=== PATIENT | male | born 1955 | race Hispanic/Latino ===

== ENCOUNTER → 2018-07-08 | Outpatient (RCR) | payer MEDICARE ==
[~2018-07-08] MED LIST: ASA81 MG PO; Z.0.ALLOPURINOL300 M PO; Z.0.AMLODIPINE BESYL PO; Z.0.CLOPIDOGREL75 MG PO; Z.0.FOLIC ACID1 MG PO; Z.0.LISINOPRIL40 MG PO; Z.0.VYTORIN 10-201 E PO
== END ==
LOC: PT 06-14 10:58
PROVIDERS: ATTEND Specialist
DX: M17.11 Unilateral primary osteoarthritis, right knee (principal); M25.561 Pain in right knee; M25.661 Stiffness of right knee, not elsewhere classified; M62.81 Muscle weakness (generalized); R26.2 Difficulty in walking, not elsewhere classified
CPT/HCPCS: 97010; 97110 ×7; 97161; G0283

== ENCOUNTER 2018-07-12 09:48 | Outpatient (RCR) | payer MEDICARE ==
[2018-08-08] MEDS ORDERED: CARVEDILOL12.5 MG PO (04:43)
[2018-08-08] MEDS ORDERED: FOLIC ACID1 MG PO (04:43)
[2018-08-08] MEDS ORDERED: BUMETANIDE2 MG PO (04:43)
[2018-08-08] MEDS ORDERED: ULORIC40 MG PO (04:43)
[2018-08-08] MEDS ORDERED: ATORVASTATIN CA10 MG PO (04:43)
[2018-08-08] MEDS ORDERED: LISINOPRIL40 MG PO (04:43)
[2018-08-08] MEDS ORDERED: FINASTERIDE5 MG PO (04:43)
[2018-08-08] MEDS ORDERED: MELOXICAM15 MG PO (04:43)
[2018-08-08] MEDS ORDERED: ASPIRIN325 MG PO (04:44)
[2018-10-11] MEDS ORDERED: AMLODIPINE BESY10 MG PO (10:39)
== END 2018-08-07 ==
LOC: PT 09:48
PROVIDERS: ATTEND Specialist
DX: M17.11 Unilateral primary osteoarthritis, right knee (principal); M25.561 Pain in right knee; M25.661 Stiffness of right knee, not elsewhere classified; M62.81 Muscle weakness (generalized); R26.2 Difficulty in walking, not elsewhere classified
CPT/HCPCS: 97110; 97139; G0283

== ENCOUNTER 2018-08-08 03:50 | Inpatient (IN) | payer MEDICARE ==
[~2018-08-08] VITALS: Ht 175.3 cm; Wt 147.4 kg
[2018-08-08] MEDS ORDERED: ACETAMINOPHEN 1000 MG/100 ML IV STA (04:02)
[2018-08-08] MEDS ORDERED: ACETAMINOPHEN 1000 MG/100 ML 100 ML IV ONE (04:11)
[2018-08-08 04:16] LABS: BASOPHILS % 0.1 % (0.0-1.0); HEMATOCRIT 36.6 % (38.2-49.6); HEMOGLOBIN 12.5 g/dL (14.0-18.0); LYMPHOCYTES # (AUTO) 0.9 (1.0-3.2); LYMPHOCYTES % 5.6 % (18.0-39.1); MEAN CORPUSCULAR HEMOGLOBIN 29.6 pg (28-32); MEAN CORPUSCULAR HGB CONC 34.2 g/dL (31-35); MEAN CORPUSCULAR VOLUME 86.5 fL (81-99); MONOCYTES # (AUTO) 1.8 (0.2-0.8); NEUTROPHILS # (AUTO) 13.5 (2.1-6.9); NEUTROPHILS % 82.6 % (38.7-80.0); PLATELET COUNT 199 x10e3/uL (140-360); RED BLOOD COUNT 4.23 x10e6/uL (4.3-5.7); RED CELL DISTRIBUTION WIDTH 13.4 % (11.7-14.4)
--- NOTE | 2018-08-08 04:20 | NUR ---
STRAIGHT CATH FOR URINE SAMPLE, 125ML CLOUDY JJ COLORED URINE OBTAINED AND SENT TO LAB
[2018-08-08] MEDS ORDERED: SODIUM CHLORIDE 0.9% 1000ML 1,000 ML ONE (04:31)
[2018-08-08 04:35] LABS: ALANINE AMINOTRANSFERASE 20 IU/L (0-55); ALBUMIN 3.4 g/dL (3.5-5.0); ALBUMIN/GLOBULIN RATIO 0.9 (0.8-2.0); ALKALINE PHOSPHATASE 52 IU/L (40-150); ANION GAP 14.4 mmol/L (8-16); BLOOD UREA NITROGEN 19 mg/dL (7-26); BUN/CREATININE RATIO 18 (6-25); CARBON DIOXIDE 23 mmol/L (22-29); CHLORIDE 103 mmol/L (98-107); CREATININE, SERUM 1.05 mg/dL (0.72-1.25); EST GLOMERULAR FILTRATION RATE > 60 ML/MIN (60-); GLUCOSE 136 mg/dL (74-118); POTASSIUM 3.4 mmol/L (3.5-5.1); SODIUM 137 mmol/L (136-145)
[2018-08-08] MEDS: CEFTRIAXONE SOD 1 GM/NS 50 ML 50 ML IV SCH (04:40)
[2018-08-08] MEDS ORDERED: ULORIC40 MG PO (04:43)
[2018-08-08] MEDS ORDERED: MELOXICAM15 MG PO (04:43)
[2018-08-08] MEDS ORDERED: FINASTERIDE5 MG PO (04:43)
[2018-08-08] MEDS ORDERED: CARVEDILOL12.5 MG PO (04:43)
[2018-08-08] MEDS ORDERED: FOLIC ACID1 MG PO (04:43)
[2018-08-08] MEDS ORDERED: LISINOPRIL40 MG PO (04:43)
[2018-08-08] MEDS ORDERED: BUMETANIDE2 MG PO (04:43)
[2018-08-08] MEDS ORDERED: ATORVASTATIN CA10 MG PO (04:43)
[2018-08-08] MEDS ORDERED: ASPIRIN325 MG PO (04:44)
[2018-08-08 04:46] LABS: BILIRUBIN,URINE NEGATIVE (NEGATIVE); CLARITY,URINE CLOUDY (CLEAR); COLOR,URINE YELLOW (YELLOW); KETONES,URINE NEGATIVE (NEGATIVE); LEUKOCYTE ESTERASE ,URINE MODERATE (NEGATIVE); NITRITE,URINE POSITIVE (NEGATIVE); PROTEIN,URINE DIPSTICK 2+ (NEGATIVE); URINE UROBILINOGEN 2 mg/dL (0.2 - 1)
--- NOTE | 2018-08-08 04:59 | Diagnostic Imaging Report ---
Examination: Single AP view of the chest. COMPARISON: July 29, 2011 INDICATION: Fever DISCUSSION: Lines/tubes: Sternotomy wires. Lungs: Pulmonary venous congestion. Pleura: No definite effusion. Heart and mediastinum: Cardiomegaly Bones and soft tissues: No acute bony abnormalities. IMPRESSION: 1. Cardiomegaly with pulmonary venous congestion. Signed by: Dr. Emanuel Neri M.D. on 08/08/2018 4:56 AM
[2018-08-08] MEDS ORDERED: SODIUM CHLORIDE 0.9% 1000ML 1,000 ML IV SCH (05:00)
[2018-08-08 05:20] LABS: BACTERIA,URINE MANY /HPF; EPITHELIAL CELLS,URINE FEW /LPF; RBC,URINE 21-50 /HPF (0-5); WBC,URINE (MAN) >50 /HPF (0-5)
--- NOTE | 2018-08-08 05:52 | NUR ---
PT STATES HE FEELS BETTER NOW, SKIN MOIST, FEVER BROKEN. VSS. TO CT. AWAKE ALERT SKIN W/D RESP NONLAB, NAD NOTED.
[2018-08-08] MEDS ORDERED: IOPAMIDOL 370 MG/ML 200 ML INFUS..BTL INJ ONE (06:21)
[2018-08-08] MEDS ORDERED: SODIUM CHLORIDE 0.9% 50ML 50 ML ONE (06:21)
--- NOTE | 2018-08-08 06:28 | Diagnostic Imaging Report ---
EXAMINATION: CT of the abdomen and pelvis with contrast. TECHNIQUE: Helical CT images of the abdomen and pelvis were performed from the lung bases to the lesser trochanters after the intravenous administration of 100 cc of Omnipaque 300 and the oral administration of none. Coronal and sagittal reformatted images were obtained. Dose modulation, iterative reconstruction, and/or weight based adjustment of the mA/kV was utilized to reduce the radiation dose to as low as reasonably achievable. COMPARISON: None. CLINICAL HISTORY:Abdominal pain DISCUSSION: ABDOMEN/PELVIS: LOWER THORAX:Unremarkable. HEPATOBILIARY: No focal hepatic lesions. No intra-or extrahepatic biliary ductal dilation. The gallbladder is normal. SPLEEN: No splenomegaly. PANCREAS: No focal masses or ductal dilatation. ADRENALS: No adrenal nodules. KIDNEYS/URETERS: Bilateral perinephric stranding, nonspecific. 1 cm calculus in the left kidney. No hydronephrosis. PELVIC ORGANS/BLADDER: Focus of gas in the bladder. PERITONEUM/RETROPERITONEUM: No free air or fluid. LYMPH NODES: No intra-abdominal, retroperitoneal, pelvic or inguinal lymphadenopathy. VESSELS: Mild vascular calcifications. GI TRACT: No distention or wall thickening. BONES AND SOFT TISSUE: No bony destructive lesions. No soft tissue abnormalities. IMPRESSION: No acute CT finding. 1 cm left renal calculus. Signed by: Dr. Emanuel Neri M.D. on 08/08/2018 6:25 AM
[2018-08-08] MEDS ORDERED: ONDANSETRON HCL INJ 2MG/ML 2ML 2 MG/ML VIAL IV PRN (07:15)
[2018-08-08] MEDS ORDERED: CEFTRIAXONE SOD 1 GM/NS 50 ML 50 ML IV SCH (07:15)
[2018-08-08 07:17] LABS: LYMPHOCYTES % (MANUAL) 5 % (19-48); MONOCYTES % (MANUAL) 14 % (3.4-9.0); NEUTROPHILS % (MANUAL) 81 % (40-74); PLATELET MORPHOLOGY COMMENT NORMAL; RBC MORPHOLOGY COMMENT NORMAL
--- OUTSIDE RECORDS SUMMARY | 2018-08-08 07:18 | XMS REPORT ---
[facility] Address Unknown Phone Unavailable Care Team Providers Care Desk Attendant Name Role Phone Mk WOODS Unavailable Unavailable Problems This patient has no known problems. Allergies, Adverse Reactions, Alerts This patient has no known allergies or adverse reactions. Medications This patient has no known medications. Results Test Description Test Time Test Comments Text Results Atomic Results Result Comments CT ABDOMEN/PELVIS W 2018-08-08 06:21:00 [place] [address] Patient Name: JUD ROLLINS JR MR #: [id number] : 1955 Age/Sex: 62/M Req #: [id number] Adm Physician: Ordered by: KANA WOODS MD Report #: [id number] Location: ER Room/Bed: Procedure: [id number] CT/CT ABDOMEN/PELVIS W Exam Date: 08/08/18 Exam Time: 0600 REPORT STATUS: Signed EXAMINATION: CT of the abdomen and pelvis with contras t. TECHNIQUE: Helical CT images of the abdomen and pelvis were performed from the lung bases to the lesser trochanters after the intravenous administration of 100 cc of Omnipaque 300 and the oral administration of none. Coronal and sagittal reformatted images were obtained. Dose modulation, iterative reconstruction, and/or weight based adjustment of the mA/kV was utilized to reduce the radiation dose to as low as reasonably achievable. COMPARISON: None. CLINICAL HISTORY:Abdominal pain DISCUSSION: ABDOMEN/PELVIS: LOWER THORAX:Unremarkable. HEPATOBILIARY: No focal hepatic lesions. No intra-or extrahepatic biliary ductal dilation. The gallbladder is normal. SPLEEN: No splenomegaly. PANCREAS: No focal masses or ductal dilatation. ADRENALS: No adrenal nodules. KIDNEYS/URETERS: Bilateral perinephric stranding, nonspecific. 1 cm calculus in the left kidney. No hydronephrosis. PELVIC ORGANS/BLADDER: Focus of gas in the bladder. PERITONEUM/RETROPERITONEUM: No free air or fluid. LYMPH NODES: No intra-abdominal, retroperitoneal, pelvic or inguinal lymphadenopathy. VESSELS: Mild vascular calcifications. GI TRACT: No distention or wall thickening. BONES AND SOFT TISSUE: No bony destructive lesions. No soft tissue abnormalities. IMPRESSION: No acute CT finding. 1 cm left renal calculus. Signed by: Dr. Gabriel Almonte M.D. on 08/08/2018 6:25 AM Dictated By: GABRIEL ALMONTE MD 4 Transcribed By: LAN on 08/08/18624 COPY TO: KANA WOODS MD CHEST SINGLE (PORTABLE) 2018-08-08 04:55:00 [place] [address] Patient Name: JUD ROLLINS JR MR #: [id number] : 1955 Age/Sex: 62/M Req #: [id number] Adm Physician: Ordered by: KANA WOODS MD Report #: [id number] Location: ER Room/Bed: Procedure: [id number] DX/CHEST SINGLE (PORTABLE) Exam Date: 08/08/18 Exam Time: 0432 REPORT STATUS: Signed Examination: Single AP view of the chest. [facility]: July 29, 2011 INDICATION: Fever DISCUSSION: Lines/tubes: Sternotomy wires. Lungs: Pulmonary venous congestion. Pleura: No definite effusion. Heart and mediastinum: Cardiomegaly Bones and soft tissues: No acute bony abnormalities. IMPRESSION: 1. Cardiomegaly with pulmonary venous congestion. Signed by: Dr. Gabriel Almonte M.D. on 08/08/2018 4:56 AM Dictated By: GABRIEL ALMONTE MD Transcribed By: LAN on 08/08/186 COPY TO: KANA WOODS MD
[2018-08-08 07:19] LABS: PLATELET ESTIMATE ADEQUATE
[2018-08-08] MEDS: SODIUM CHLORIDE 0.9% 1000ML 1,000 ML IV SCH ×3 (07:48→23:34)
[2018-08-08 10:22] VITALS: BP 122/58
[2018-08-08 12:32] VITALS: BP 122/58
--- NOTE | 2018-08-08 14:27 | History and Physical ---
HISTORY OF PRESENT ILLNESS: He is a 62-year-old male patient of mine presented to the emergency room with a complaint of pain on the urination and difficulty with urination and urinary retention. HISTORY OF PRESENT ILLNESS: Mr. Paul Kelley is a 62-year-old male patient with a significant history of arthritis, coronary artery disease, obesity, hypertension, hyperlipidemia presented to the emergency room with a complaint of urinary burning, frequency, pain, and unable to completely empty the bladder and also the patient was complaining of having a bilateral flank pain and more on the left side and there is generalized pain in the knee and multiple joints. REVIEW OF SYSTEMS: Detailed review of system examination had been done. All 14 systems evaluated and the patient is complaining of generalized pain and generalized body aches, chills, fever, and multiple joint pains. PAST MEDICAL HISTORY: The patient has a history of coronary artery disease, hypertension, hyperlipidemia. The patient had urinary retention in 2011. PAST SURGICAL HISTORY: Knee replacement. Morbid obesity. MEDICATIONS: See from the list. ALLERGIES: NO KNOWN DRUG ALLERGIES. SOCIAL HISTORY: The patient chews tobacco. He quit smoking in 1980. He is not using alcohol. FAMILY HISTORY: Hypertension, hyperlipidemia. PHYSICAL EXAMINATION: GENERAL: He is a middle-aged male patient lying in the bed, not in any acute distress now. VITAL SIGNS: Temperature 99.1, pulse rate 86, respiratory rate 16, blood pressure 109/55. HEENT: Normocephalic, atraumatic. No JVD. No lymphadenopathy. LUNG: Bilateral equal air entry. No rales, rhonchi. HEART: S1, S2 regular. Systolic murmur present. No gallop. ABDOMEN: Soft. Bowel sounds present. NEUROLOGICAL: No focal neurological deficits. IMAGING: The patient's CAT scan had showed 1 cm left renal calculus and bilateral perinephric standing. EKG showed cardiomegaly with pulmonary vascular congestion. LABORATORY EXAMINATION: [place] [address]. Potassium was 3.4 and CK was 237 elevated. Urine is nitrite positive and multiple rbc's and wbc's. ADMITTING IMPRESSION/DIAGNOSES: Acute pyelonephritis with left renal stone, hypertension, coronary artery disease, hyperlipidemia, arthritis, morbid obesity. PLAN: The patient will be admitted with above diagnosis. We will treat the patient with IV antibiotic Rocephin and IV fluid and obtain Urology consultation, Dr. Overton. MD MAMTA Moreno/VLADIMIR /[id number]
[2018-08-08] MEDS: MORPHINE SULFATE INJ 4 MG/ML INJ 1ML IV PRN ×3 (14:35→23:34)
[2018-08-08 16:00] VITALS: BP 130/63
[2018-08-08 16:20] LABS: CREATINE KINASE MB 1.2 ng/mL (0-5.0)
[2018-08-08] MEDS: CARVEDILOL 12.5 MG TAB PO SCH (17:00)
[2018-08-08] MEDS: ACETAMINOPHEN 325 MG TAB PO PRN (18:50)
[2018-08-08 19:40] VITALS: BP 131/58
[2018-08-08 19:45] VITALS: BP 131/58
[2018-08-09] VITALS (7 sets, daily range): BP systolic 118–170; BP diastolic 58–74
[2018-08-09] MEDS: ACETAMINOPHEN 325 MG TAB PO PRN ×3 (00:47→20:26)
[2018-08-09] MEDS: CEFTRIAXONE SOD 1 GM/NS 50 ML 50 ML IV SCH (04:36)
[2018-08-09] MEDS: MORPHINE SULFATE INJ 4 MG/ML INJ 1ML IV PRN ×5 (04:45→20:26)
[2018-08-09 05:22] LABS: BASOPHILS % 0.2 % (0.0-1.0); EOSINOPHILS % 0.3 % (0.0-6.0); HEMATOCRIT 34.4 % (38.2-49.6); HEMOGLOBIN 11.5 g/dL (14.0-18.0); LYMPHOCYTES # (AUTO) 1.5 (1.0-3.2); LYMPHOCYTES % 9.4 % (18.0-39.1); MEAN CORPUSCULAR HEMOGLOBIN 29.8 pg (28-32); MEAN CORPUSCULAR HGB CONC 33.4 g/dL (31-35); MEAN CORPUSCULAR VOLUME 89.1 fL (81-99); MONOCYTES # (AUTO) 1.8 (0.2-0.8); MONOCYTES % 11.4 % (4.4-11.3); NEUTROPHILS % 77.5 % (38.7-80.0); PLATELET COUNT 195 x10e3/uL (140-360); RED BLOOD COUNT 3.86 x10e6/uL (4.3-5.7); RED CELL DISTRIBUTION WIDTH 13.8 % (11.7-14.4)
[2018-08-09 05:43] LABS: ALANINE AMINOTRANSFERASE 20 IU/L (0-55); ALBUMIN/GLOBULIN RATIO 0.8 (0.8-2.0); ALKALINE PHOSPHATASE 48 IU/L (40-150); ANION GAP 13.3 mmol/L (8-16); BLOOD UREA NITROGEN 20 mg/dL (7-26); BUN/CREATININE RATIO 19 (6-25); CALCIUM 8.8 mg/dL (8.4-10.2); CARBON DIOXIDE 24 mmol/L (22-29); CHLORIDE 104 mmol/L (98-107); CREATININE, SERUM 1.05 mg/dL (0.72-1.25); EST GLOMERULAR FILTRATION RATE > 60 ML/MIN (60-); GLUCOSE 108 mg/dL (74-118); POTASSIUM 3.3 mmol/L (3.5-5.1); SODIUM 138 mmol/L (136-145)
[2018-08-09 06:39] LABS: CREATINE KINASE MB 1.3 ng/mL (0-5.0)
--- NOTE | 2018-08-09 07:06 | NUR ---
report and walking rounds completed, bed in low and locked position, IV intact
[2018-08-09 07:51] LABS: LYMPHOCYTES % (MANUAL) 5 % (19-48); MONOCYTES % (MANUAL) 14 % (3.4-9.0); NEUTROPHILS % (MANUAL) 81 % (40-74); PLATELET ESTIMATE ADEQUATE; PLATELET MORPHOLOGY COMMENT NORMAL; RBC MORPHOLOGY COMMENT NORMAL
--- NOTE | 2018-08-09 08:27 | Consultation ---
DATE OF CONSULTATION: 08/08/2018 Urology Consultation REASON FOR CONSULTATION: Pyelonephritis. HISTORY OF PRESENT ILLNESS: Warren Miller Jr. is a 62-year-old man, who presented with fever greater than 102. The patient was previously treated at [facility]. He underwent CT scanning at that time. Apparently, he was never told he had a kidney stone. The patient denies any hematuria or current dysuria. The patient denies any urinary incontinence. PAST MEDICAL AND SURGICAL HISTORY: 1. Morbid obesity. 2. Coronary artery disease status post coronary artery bypass grafting x3. 3. Status post left total knee arthroplasty. 4. Needs a right total knee arthroplasty. 5. Status post circumcision. CURRENT MEDICATIONS: Reviewed. Please refer the MAR. ALLERGIES: PLEASE REFER THE MAR. SOCIAL HISTORY: The patient denies smoking, alcohol, and drug use. He does dip tobacco. 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 FAMILY HISTORY: Noncontributory to the active urological problems. REVIEW OF SYSTEMS: Discussed as above in history of present illness and past medical history, otherwise negative for all systems. PHYSICAL EXAMINATION: GENERAL: Very pleasant, morbidly obese 62-year-old male, lying in bed, in no apparent distress. VITAL SIGNS: The patient is currently afebrile. His vital signs are currently stable. The patient's temperature upon presentation to the emergency room was 102.5. ABDOMEN: Soft, nondistended, nontender without costovertebral angle tenderness. No mass palpable. GENITOURINARY: Testes descended bilaterally. Testes and epididymides bilaterally palpably normal and nontender. The patient has a large right hydrocele and a moderate left hydrocele that are nontender and soft. The patient has a circumcised male phallus with scarring and secondary phimosis and a phimotic band. The patient's meatus is unremarkable. For the remaining physical examination systems, please refer to the admission history and physical on the chart. LABORATORY STUDIES: The patient's cultures are pending. White blood cell count is 16,340, hemoglobin 12.5, and platelets are 199,000. The patient's potassium is low at 3.4, creatinine is normal at 1.05, calcium is normal at 9. Urinalysis is significant for 21-50 rbc's, greater than 50 wbc's and many bacteria with nitrite positive urine. CT scan of the abdomen and pelvis was done in the emergency room. It showed a 1 cm left renal stone without any hydronephrosis. ASSESSMENT: 1. Left nephrolithiasis. 2. Urinary tract infection. 3. Left pyelonephritis. 4. Recurrent chronic prostatitis. 5. Morbidly obese at approximately 320 pounds. 6. Right greater than left hydrocele. 7. Phimosis that is recurrent despite prior circumcision. 8. Microhematuria. 9. Leukocytosis. 10. Anemia. 11. Hypokalemia. PLAN: 1. Hematologic: Electrolyte abnormalities per the primary team. 2. We will recommend following up on the patient's culture and sensitivity and adjusting the patient's antibiotics accordingly. 3. The patient will need stone procedure. He is too large for the usual extracorporeal shock wave lithotripsy machine that we utilize. Most likely, ureteroscopic approach will be required. Thank you much for involving us in care of your patient. We will be happy to follow along with you as well as an outpatient. Boubacar Overton MD [place]/MODL /[id number] cc: Migel Martinez MD
--- NOTE | 2018-08-09 08:39 | Diagnostic Imaging Report ---
EXAMINATION: CHEST SINGLE (PORTABLE) INDICATION: Chest pain COMPARISON: None FINDINGS: TUBES and LINES: Sternotomy wires and EKG leads overlie the thorax. LUNGS: The lung volumes are low. There is left basilar opacity silhouetting the left heart border and left migdalia diaphragm. PLEURA: No pleural effusion or pneumothorax. HEART AND MEDIASTINUM: The cardiomediastinal silhouette is stable , mildly enlarged. BONES AND SOFT TISSUES: No acute osseous lesion. Soft tissues are unremarkable. UPPER ABDOMEN: No free air under the diaphragm. IMPRESSION: Low lung volumes. Left basilar opacity, more likely atelectasis than aspiration or pneumonia. Signed by: Larissa Dill MD on 08/09/2018 8:35 AM
[2018-08-09] MEDS: SODIUM CHLORIDE 0.9% 1000ML 1,000 ML IV SCH ×2 (09:20→15:02)
[2018-08-09] MEDS: MELOXICAM 7.5 MG TAB PO SCH (09:22)
[2018-08-09] MEDS: BUMETANIDE 1 MG TAB PO SCH (09:22)
[2018-08-09] MEDS: ASPIRIN 325 MG TAB PO SCH (09:22)
[2018-08-09] MEDS: FOLIC ACID 1 MG TAB PO SCH (09:22)
[2018-08-09] MEDS: LISINOPRIL 20 MG TAB PO SCH (09:22)
[2018-08-09] MEDS: CARVEDILOL 12.5 MG TAB PO SCH ×2 (09:22→16:22)
[2018-08-09] MEDS: ATORVASTATIN 10 MG TAB PO SCH (09:22)
[2018-08-09] MEDS: FEBUXOSTAT 80 MG TAB PO SCH (09:23)
[2018-08-09] MEDS: FINASTERIDE 5 MG TAB PO SCH (09:23)
[2018-08-09] MEDS ORDERED: ONDANSETRON HCL 4 MG ORAL DISINTEGRATING TAB PO PRN (15:30)
--- NOTE | 2018-08-09 15:35 | NUR ---
Visit made by the Spiritual Care Department Pastoral Visitor, Tabatha Chavez. PV provided pastoral presence, prayer, hospitality, and supportive listening. Pastoral Visitor informed pt/family of the scope of Press Setter Services and availability. ASHANTI COUGHLIN Director Transportation Spiritual Care Department O: [phone] Pager: [phone] ([phone] number calling from)
[2018-08-10] VITALS (8 sets, daily range): BP systolic 129–165; BP diastolic 62–77
[2018-08-10] MEDS: MORPHINE SULFATE INJ 4 MG/ML INJ 1ML IV PRN ×2 (02:05→23:15)
[2018-08-10] MEDS: SODIUM CHLORIDE 0.9% 1000ML 1,000 ML IV SCH ×2 (02:28→07:02)
[2018-08-10] MEDS: ACETAMINOPHEN 325 MG TAB PO PRN (02:29)
[2018-08-10] MEDS: CEFTRIAXONE SOD 1 GM/NS 50 ML 50 ML IV SCH (04:00)
[2018-08-10 05:07] LABS: BASOPHILS % 0.1 % (0.0-1.0); EOSINOPHILS # (AUTO) 0.1 (0.0-0.4); EOSINOPHILS % 0.6 % (0.0-6.0); HEMATOCRIT 32.3 % (38.2-49.6); HEMOGLOBIN 10.9 g/dL (14.0-18.0); LYMPHOCYTES # (AUTO) 1.1 (1.0-3.2); MEAN CORPUSCULAR HEMOGLOBIN 29.8 pg (28-32); MEAN CORPUSCULAR HGB CONC 33.7 g/dL (31-35); MEAN CORPUSCULAR VOLUME 88.3 fL (81-99); MONOCYTES % 9.8 % (4.4-11.3); NEUTROPHILS # (AUTO) 8.3 (2.1-6.9); NEUTROPHILS % 78.7 % (38.7-80.0); PLATELET COUNT 213 x10e3/uL (140-360); RED BLOOD COUNT 3.66 x10e6/uL (4.3-5.7); RED CELL DISTRIBUTION WIDTH 13.6 % (11.7-14.4)
--- NOTE | 2018-08-10 06:44 | NUR ---
GOT RESULT FROM LAB. PATIENT HAS ESBL IN THE URINE. NOTIFIED FIELD STAFF MANAGER
--- NOTE | 2018-08-10 07:05 | NUR ---
RCD PT AT BED PT IS ALERT AND ORIENTED PT RESTING ON BED NO SIGNS OF ANY DISTRESS NOTED IV PATENT BED LOW AND LOCKED CALL LIGHT IN REACH
[2018-08-10] MEDS: CARVEDILOL 12.5 MG TAB PO SCH ×2 (08:00→17:00)
--- NOTE | 2018-08-10 08:50 | NUR ---
PAGED DR Marilia WEBB TO NOTIFY THE CRITICAL LAB
[2018-08-10] MEDS: ATORVASTATIN 10 MG TAB PO SCH (09:00)
[2018-08-10] MEDS: FINASTERIDE 5 MG TAB PO SCH (09:00)
[2018-08-10] MEDS: FOLIC ACID 1 MG TAB PO SCH (09:00)
[2018-08-10] MEDS: BUMETANIDE 1 MG TAB PO SCH (09:00)
[2018-08-10] MEDS: ASPIRIN 325 MG TAB PO SCH (09:00)
[2018-08-10] MEDS: MELOXICAM 7.5 MG TAB PO SCH (09:00)
[2018-08-10] MEDS: FEBUXOSTAT 80 MG TAB PO SCH (09:00)
[2018-08-10] MEDS: LISINOPRIL 20 MG TAB PO SCH (09:00)
[2018-08-10] MEDS ORDERED: POTASSIUM CHLORIDE 10MEQ EA PO ONE (10:30)
[2018-08-10] MEDS: PIPERACILLIN/TAZO 4.5 GM 100 ML IV SCH ×2 (13:49→21:07)
--- NOTE | 2018-08-10 18:41 | NUR ---
PT RESTING ON BED BED SIDE REPORT GIVEN TO ONCOMING NURSE
[2018-08-11 00:32] VITALS: BP 145/69
[2018-08-11 05:03] LABS: BASOPHILS % 0.4 % (0.0-1.0); EOSINOPHILS # (AUTO) 0.2 (0.0-0.4); EOSINOPHILS % 1.5 % (0.0-6.0); HEMATOCRIT 35.4 % (38.2-49.6); HEMOGLOBIN 11.8 g/dL (14.0-18.0); LYMPHOCYTES # (AUTO) 0.9 (1.0-3.2); LYMPHOCYTES % 8.7 % (18.0-39.1); MEAN CORPUSCULAR HEMOGLOBIN 29.6 pg (28-32); MEAN CORPUSCULAR HGB CONC 33.3 g/dL (31-35); MEAN CORPUSCULAR VOLUME 88.7 fL (81-99); MONOCYTES % 9.6 % (4.4-11.3); NEUTROPHILS # (AUTO) 7.8 (2.1-6.9); NEUTROPHILS % 79.4 % (38.7-80.0); PLATELET COUNT 238 x10e3/uL (140-360); RED BLOOD COUNT 3.99 x10e6/uL (4.3-5.7); RED CELL DISTRIBUTION WIDTH 13.4 % (11.7-14.4)
[2018-08-11 05:10] VITALS: BP 176/83
[2018-08-11 05:24] LABS: ALANINE AMINOTRANSFERASE 192 IU/L (0-55); ALBUMIN 2.8 g/dL (3.5-5.0); ALBUMIN/GLOBULIN RATIO 0.7 (0.8-2.0); ALKALINE PHOSPHATASE 96 IU/L (40-150); ANION GAP 13.8 mmol/L (8-16); BLOOD UREA NITROGEN 15 mg/dL (7-26); BUN/CREATININE RATIO 18 (6-25); CARBON DIOXIDE 28 mmol/L (22-29); CHLORIDE 99 mmol/L (98-107); CREATININE, SERUM 0.84 mg/dL (0.72-1.25); EST GLOMERULAR FILTRATION RATE > 60 ML/MIN (60-); GLUCOSE 107 mg/dL (74-118); POTASSIUM 3.8 mmol/L (3.5-5.1); SODIUM 137 mmol/L (136-145)
[2018-08-11] MEDS: PIPERACILLIN/TAZO 4.5 GM 100 ML IV SCH ×2 (05:41→14:00)
[2018-08-11 07:44] VITALS: BP 176/83
[2018-08-11 07:50] VITALS: BP 163/76
[2018-08-11] MEDS: CARVEDILOL 12.5 MG TAB PO SCH ×2 (08:00→17:00)
[2018-08-11] MEDS: LISINOPRIL 20 MG TAB PO SCH (09:00)
[2018-08-11] MEDS: ASPIRIN 325 MG TAB PO SCH (09:00)
[2018-08-11] MEDS: BUMETANIDE 1 MG TAB PO SCH (09:00)
[2018-08-11] MEDS: MELOXICAM 7.5 MG TAB PO SCH (09:00)
[2018-08-11] MEDS: ATORVASTATIN 10 MG TAB PO SCH (09:00)
[2018-08-11] MEDS: FINASTERIDE 5 MG TAB PO SCH (09:00)
[2018-08-11] MEDS: FEBUXOSTAT 80 MG TAB PO SCH (09:00)
[2018-08-11] MEDS: FOLIC ACID 1 MG TAB PO SCH (09:00)
[2018-08-11 11:51] VITALS: BP 132/70
--- NOTE | 2018-08-11 13:55 | NUR ---
IMM letter delivered and explained to pt. He verbalized understanding. Signed copy placed in chart. Copy to pt's transition of care folder.
--- NOTE | 2018-08-11 15:44 | NUR ---
AC TO DR PRISCILLA ALCANTAR PT CAN GO HOME PAGED TO DR Marilia WEBB TO GET DISCHARGE ORDER
[2018-08-11] MEDS ORDERED: BACTRIM DS TAB1 EACH PO (16:30)
[2018-08-11] MEDS ORDERED: TYLENOL WITH C1 EACH PO (16:31)
[2018-08-11 16:48] VITALS: BP 142/72
--- NOTE | 2018-08-11 17:48 | NUR ---
PT WENT HOME IN SAFE CONDITION WITH HIS DAUGHTER
--- NOTE | 2018-08-11 18:20 | Discharge Summary ---
HISTORY OF PRESENT ILLNESS: This is a 62-year-old male patient, presented with a complaint of urinary retention and unable to urinate for couple of days and fevers, chills, and abdominal pain. ADMITTING IMPRESSION/DIAGNOSES: The patient has a urinary tract infection, pyelonephritis, kidney stone, hypertension coronary artery disease. The patient has a right hydronephrosis and hypokalemia. HOSPITAL COURSE SUMMARY: The patient was admitted with above diagnoses and was treated with IV antibiotics, Rocephin. The patient had abdominal CT scan was done and found a 1 cm left renal calculus and the patient has bilateral perinephric standing. Chest x-ray was done which was basilar atelectasis. The patient's urine culture was ESBL, so Rocephin was stopped and Zosyn was started. A Urology consultation was done by Dr. Overton. The patient was advise to treat with IV antibiotics switched over to oral Bactrim and now upon stabilization, the patient will be discharged home on oral double strength Bactrim DS twice a day for 14 days. The patient will need a urological procedure for the stone as outpatient. Once the infection clears up, the patient will need outpatient followup with me as well as Urology as outpatient. MD MAMTA Moreno/VLADIMIR /[id number]
[2018-10-11] MEDS ORDERED: AMLODIPINE BESY10 MG PO (10:39)
== END 2018-08-11 17:25 | disposition home or self-care (01) | DRG 872 ==
LOC: ER 03:50 → ERHOLD 07:02 → MED/SURG2 10:05
PROVIDERS: ADMIT Internal Medicine; ATTEND Internal Medicine
DX: A41.9 Sepsis, unspecified organism (principal); N13.6 Pyonephrosis; Z68.42 Body mass index [BMI] 45.0-49.9, adult; M19.90 Unspecified osteoarthritis, unspecified site; I25.10 Atherosclerotic heart disease of native coronary artery without angina pectoris; E78.5 Hyperlipidemia, unspecified; Z18.9 Retained foreign body fragments, unspecified material; E66.01 Morbid (severe) obesity due to excess calories; N41.9 Inflammatory disease of prostate, unspecified; B96.20 Unspecified Escherichia coli [E. coli] as the cause of diseases classified elsewhere; Z16.12 Extended spectrum beta lactamase (ESBL) resistance; E87.6 Hypokalemia; D64.9 Anemia, unspecified
CPT/HCPCS: 36415; 71045; 74177; 80053; 81001; 82550; 82553; 83605; 84484; 85025; 87040; 87086; 87186; 99284; J0696; J2270; J2405; J2543; J7030; Q0162; Q9967

== ENCOUNTER 2018-10-14 06:09 | Observation (INO) | payer BC, MEDICARE ==
[2018-10-11 11:36] LABS: BASOPHILS % 0.3 % (0.0-1.0); EOSINOPHILS # (AUTO) 0.6 (0.0-0.4); EOSINOPHILS % 5.2 % (0.0-6.0); HEMATOCRIT 38.2 % (38.2-49.6); HEMOGLOBIN 12.7 g/dL (14.0-18.0); LYMPHOCYTES # (AUTO) 2.7 (1.0-3.2); MEAN CORPUSCULAR HGB CONC 33.2 g/dL (31-35); MEAN CORPUSCULAR VOLUME 90.1 fL (81-99); MONOCYTES # (AUTO) 0.9 (0.2-0.8); MONOCYTES % 7.4 % (4.4-11.3); NEUTROPHILS # (AUTO) 7.4 (2.1-6.9); NEUTROPHILS % 63.5 % (38.7-80.0); PLATELET COUNT 294 x10e3/uL (140-360); RED BLOOD COUNT 4.24 x10e6/uL (4.3-5.7); RED CELL DISTRIBUTION WIDTH 13.6 % (11.7-14.4)
[2018-10-11 12:01] LABS: ANION GAP 13.3 mmol/L (8-16); BLOOD UREA NITROGEN 16 mg/dL (7-26); BUN/CREATININE RATIO 15 (6-25); CALCIUM 9.8 mg/dL (8.4-10.2); CARBON DIOXIDE 29 mmol/L (22-29); CHLORIDE 101 mmol/L (98-107); CREATININE, SERUM 1.05 mg/dL (0.72-1.25); EST GLOMERULAR FILTRATION RATE > 60 ML/MIN (60-); GLUCOSE 126 mg/dL (74-118); POTASSIUM 4.3 mmol/L (3.5-5.1); SODIUM 139 mmol/L (136-145)
--- NOTE | 2018-10-11 12:19 | Diagnostic Imaging Report ---
EXAM: ABDOMEN-1VIEW (KUB), CHEST 2 VIEWS DATE: 10/11/2018 10:51 AM INDICATION: Kidney stone, preoperative evaluation COMPARISON: Chest radiograph from 08/09/2018, CT abdomen/pelvis from 08/08/2018 FINDINGS: There are postsurgical changes from median sternotomy. The trachea is midline. The lungs are symmetrically expanded without evidence for focal consolidation, pneumothorax, or significant pleural effusion. The cardiac silhouette is at the upper limits of normal for size. Mediastinal contours are unremarkable. Bowel gas pattern appears nonobstructive. No pathologically dilated loops of bowel identified. There is a 1 cm calcification projecting over the left renal shadow likely are presenting the renal stone noted on the prior CT examination. No other abnormal intra-abdominal calcification is identified. No acute osseous abnormalities identified. IMPRESSION: No acute cardiopulmonary process identified. 1 cm calcification noted projecting over the left renal shadow likely representing the known renal calculus. Signed by: Dr. Sumanth Estrada MD on 10/11/2018 12:15 PM
[~2018-10-14] VITALS: Ht 175.3 cm; Wt 151.1 kg
[~2018-10-14 06:09] MED LIST changes: +AMLODIPINE BESY10 MG PO; +ASPIRIN325 MG PO; +ATORVASTATIN CA10 MG PO; +BACTRIM DS TAB1 EACH PO; +BUMETANIDE2 MG PO; +CARVEDILOL12.5 MG PO; +FINASTERIDE5 MG PO; +FOLIC ACID1 MG PO; +LISINOPRIL40 MG PO; +MELOXICAM15 MG PO; +TYLENOL WITH C1 EACH PO; +ULORIC40 MG PO
[2018-10-14] MEDS ORDERED: IOPAMIDOL 610MG/1ML 300 MG/ML VIAL IV ONE (06:19)
[2018-10-14] MEDS ORDERED: B&O 60MG R/S 60 MG SUPP PR ONE ×2 (06:19→08:04)
[2018-10-14] MEDS ORDERED: CEFTRIAXONE SOD 1 GM/NS 50 ML 100 ML IV ONE (07:08)
--- NOTE | 2018-10-14 07:10 | NUR ---
SPIRITUAL CARE - Pre-Surgery Assessment: Pt in bed. Pt reported supportive attention from family and friends. Intervention: I provided pastoral presence, hospitality, and sympathetic listening. I acquainted pt with availability of tapper operator while hospitalized. Outcome: Pt expressed appreciation for visit. No need for follow up indicated at this time. ASHANTI Barnettlain Spiritual Care Department O: [phone] Pager: [phone] ([phone] number calling from)
[2018-10-14] MEDS ORDERED: FENTANYL CITRATE/PF 100MCG/2 ML INJ ONE ×2 (09:51→18:48)
[2018-10-14] MEDS ORDERED: HYDROMORPHONE 2MG/ML 2 MG/ML ML ONE (10:52)
[2018-10-14] MEDS ORDERED: OXYBUTYNIN CHLORIDE 5 MG TAB ONE (11:30)
[2018-10-14] MEDS ORDERED: DIPHENHYDRAMINE HCL 25 MG CAP PO PRN (12:45)
[2018-10-14] MEDS ORDERED: B&O 60MG R/S 60 MG SUPP PR PRN (12:45)
[2018-10-14] MEDS ORDERED: NALOXONE HCL INJ 0.4 MG/ML AMP IV PRN (12:45)
[2018-10-14] MEDS ORDERED: ONDANSETRON HCL INJ 2MG/ML 2ML 2 MG/ML VIAL IV PRN (12:45)
[2018-10-14] MEDS ORDERED: MORPHINE SULFATE 1 MG/ML 30ML PCA IV PRN (12:45)
[2018-10-14] MEDS ORDERED: MORPHINE SULFATE 2 MG/ML SYR 1ML ONE (12:51)
[2018-10-14] MEDS ORDERED: MORPHINE SULFATE 1 MG/ML 30ML PCA ONE (12:58)
[2018-10-14] MEDS ORDERED: PIPER-TAZ 3.375 GM 50 ML IV SCH (14:00)
[2018-10-14] MEDS ORDERED: LIDOCAINE HCL 2% LOCAL INJ 5 ML SDV VIAL INJ ONE (14:24)
[2018-10-14] MEDS ORDERED: PROPOFOL IV EMULSION 10 MG/ML 20 ML VIAL ONE (14:24)
[2018-10-14] MEDS ORDERED: DEXAMETHASONE SOD PHOS INJ 4 MG/ML VIAL ONE (14:24)
[2018-10-14] MEDS ORDERED: SEVOFLURANE INHAL SOLN 250 ML PEN BTL ONE (14:24)
[2018-10-14] MEDS ORDERED: ONDANSETRON HCL INJ 2MG/ML 2ML 2 MG/ML VIAL ONE (14:24)
[2018-10-14 14:41] VITALS: BP 139/74
[2018-10-14 15:08] VITALS: BP 139/74
[2018-10-14 16:37] VITALS: BP 139/74
[2018-10-14] MEDS: PHENAZOPYRIDINE HCL 100 MG TAB PO SCH ×2 (17:00→17:44)
[2018-10-14] MEDS: D5.45%NS/KCL 20MEQ 1,000 ML IV SCH ×2 (17:00→20:17)
[2018-10-14] MEDS: OXYBUTYNIN CHLORIDE 5 MG TAB PO SCH ×2 (17:00→20:17)
[2018-10-14] MEDS: DOCUSATE SODIUM 100 MG CAP PO SCH (17:39)
[2018-10-14] MEDS: PIPER-TAZ 3.375 GM 50 ML IV SCH (17:39)
[2018-10-14] MEDS ORDERED: MIDAZOLAM HCL 2 MG/2 ML VIAL ONE (18:48)
--- NOTE | 2018-10-14 19:03 | NUR ---
Patient lying in bed with eyes open. respiration even and unlabored. Report given to core finisher. Call light in reach.
[2018-10-14 19:05] VITALS: BP 139/74
[2018-10-14 20:00] VITALS: BP 130/63
--- NOTE | 2018-10-14 20:14 | History and Physical ---
HISTORY OF PRESENT ILLNESS: The patient is a 62-year-old male patient, presented with a complaint of abdominal pain and the patient was having recurrent abdominal pain from the stone in the left ureter and the patient was also having generalized joint pain and arthritis. The patient was seen by Dr. Overton. The patient was taken to the OR and the patient had left ureterostomy, stent was placed and, stone was removed. The patient has a significant medical history of coronary artery disease and basically hypertension and arthritis. ALLERGIES: NO KNOWN DRUG ALLERGIES. MEDICATIONS: See from the list. PAST MEDICAL HISTORY: Coronary artery disease, status post coronary artery bypass surgery, status post left knee arthroplasty and right knee severe arthritis needing surgery. SOCIAL HISTORY: The patient denies smoking. Denies using alcohol or any recreational drugs. FAMILY HISTORY: Hypertension. REVIEW OF SYSTEMS: The patient has a detailed review of systems examination was done and most of the systems were negative, except the patient has neck pain, abdominal pain, urinary burning and pain, and generalized joint pain. PHYSICAL EXAMINATION: GENERAL: He is an elderly male patient, lying in the bed, not in any acute distress. The patient is right now on the EMERGENCY MEDICAL SERVICE COORDINATOR pump for the postop pain. VITAL SIGNS: Temperature 99, pulse rate 88, respiratory rate 16, blood pressure 110/70. HEENT: Normocephalic and atraumatic. NECK: No JVD. No lymphadenopathy. LUNGS: Bilateral equal air entry. No rales. No rhonchi. HEART: S1 and S2 regular. Systolic murmur present. ABDOMEN: Soft. Bowel sounds present. NEUROLOGIC: No focal neurological deficit. ADMITTING IMPRESSION/DIAGNOSES: Left nephrolithiasis with urinary tract infection, recurrent prostatitis, coronary artery disease, hypertension, hyperlipidemia, and severe osteoarthritis. PLAN: The patient will be getting IV antibiotics and IV zosyn and Rocephin. The patient is on Dilaudid p.r.n. for pain. The patient also was admitted for pain management after the surgery and the patient will be also getting IV fluids. MD MAMTA Moreno/VLADIMIR /[id number]
[2018-10-14] MEDS ORDERED: ATORVASTATIN 10 MG TAB PO SCH (21:00)
[2018-10-14 23:12] VITALS: BP 130/63
[2018-10-15] VITALS: BP 141/67
[2018-10-15] MEDS: D5.45%NS/KCL 20MEQ 1,000 ML IV SCH ×2 (01:06→09:50)
[2018-10-15] MEDS: PIPER-TAZ 3.375 GM 50 ML IV SCH ×2 (01:06→10:05)
[2018-10-15 04:00] VITALS: BP 149/64
--- NOTE | 2018-10-15 07:03 | NUR ---
Received patient lying in bed with eyes open. Respiration even and unlabored without SOB. denies pain. call light in reach.
[2018-10-15 08:07] VITALS: BP 140/64
[2018-10-15] MEDS: DOCUSATE SODIUM 100 MG CAP PO SCH (08:35)
[2018-10-15] MEDS: PHENAZOPYRIDINE HCL 100 MG TAB PO SCH ×2 (08:37→13:10)
[2018-10-15] MEDS: OXYBUTYNIN CHLORIDE 5 MG TAB PO SCH (08:37)
[2018-10-15 08:38] VITALS: BP 140/64
[2018-10-15 08:43] LABS: BASOPHILS % 0.2 % (0.0-1.0); EOSINOPHILS % 0.3 % (0.0-6.0); HEMATOCRIT 32.5 % (38.2-49.6); HEMOGLOBIN 11.3 g/dL (14.0-18.0); LYMPHOCYTES # (AUTO) 0.8 (1.0-3.2); LYMPHOCYTES % 7.2 % (18.0-39.1); MEAN CORPUSCULAR HGB CONC 34.8 g/dL (31-35); MEAN CORPUSCULAR VOLUME 89.3 fL (81-99); MONOCYTES # (AUTO) 0.7 (0.2-0.8); MONOCYTES % 6.1 % (4.4-11.3); NEUTROPHILS # (AUTO) 10.1 (2.1-6.9); NEUTROPHILS % 85.7 % (38.7-80.0); PLATELET COUNT 203 x10e3/uL (140-360); RED BLOOD COUNT 3.64 x10e6/uL (4.3-5.7); RED CELL DISTRIBUTION WIDTH 13.4 % (11.7-14.4)
[2018-10-15 08:52] LABS: ANION GAP 13.7 mmol/L (8-16); BLOOD UREA NITROGEN 11 mg/dL (7-26); BUN/CREATININE RATIO 13 (6-25); CARBON DIOXIDE 24 mmol/L (22-29); CHLORIDE 102 mmol/L (98-107); CREATININE, SERUM 0.82 mg/dL (0.72-1.25); EST GLOMERULAR FILTRATION RATE > 60 ML/MIN (60-); GLUCOSE 132 mg/dL (74-118); POTASSIUM 3.7 mmol/L (3.5-5.1); SODIUM 136 mmol/L (136-145)
[2018-10-15] MEDS ORDERED: ASPIRIN 81 MG CHEW TAB PO SCH (09:00)
[2018-10-15] MEDS ORDERED: ASPIRIN 325 MG TAB PO SCH (09:00)
[2018-10-15] MEDS ORDERED: AMLODIPINE BESYLATE 10 MG TAB PO SCH (09:00)
[2018-10-15] MEDS ORDERED: FEBUXOSTAT 80 MG TAB PO SCH (09:00)
[2018-10-15] MEDS ORDERED: CARVEDILOL 12.5 MG TAB PO SCH (09:00)
[2018-10-15] MEDS ORDERED: FOLIC ACID 1 MG TAB PO SCH (09:00)
[2018-10-15] MEDS ORDERED: FINASTERIDE 5 MG TAB PO SCH (09:00)
[2018-10-15 12:00] VITALS: BP 118/56
--- NOTE | 2018-10-15 16:00 | NUR ---
Right hand IV line discontinued. Catheter tip intact. no bleeding noted.
--- NOTE | 2018-10-15 16:10 | NUR ---
Transported patient via wheelchair with belongings to family member. Respiration even and unlabored. Patient discharge to home.
[2018-10-15 16:19] VITALS: BP 125/62
--- NOTE | 2018-11-12 20:48 | Discharge Summary ---
CHIEF COMPLAINT: Abdominal pain from the stone in the left ureter, also having generalized joint pain and arthritis. Currently sees Dr. Overton for the stone. With his admission here, the patient was taken to the OR by Dr. Overton. The patient had a left ureterostomy. Stem was placed. Stone was removed. The patient will be admitted for 24-hour observation and pain management. Post surgery, the patient was placed on the Med-Surg floor, was on regular diet. His pain was improving. Tolerating a stent placement well. Medications were continued to be adjusted as needed. He was continued and maintained also on his routine daily medications. Lab work was watched. The patient stabilized 24 hours, was cleared for discharge in stable condition. IMAGING: Chest shows no acute cardiopulmonary process identified. A 1 cm calcification noted projecting on the renal shallow likely representing but normal renal calculus. Abdomen x-ray reveals the same findings. Cultures were negative. LABORATORY STUDIES: Shows a CBC with a white cell count 11,700, H and H were 12.7 and 38.2. Repeat CBC shows white cell count still elevated at 11,700, H and H 11.3 and 32.5. Chemistries unremarkable except for blood sugars. First study was 126, followup study 132. The patient recovered well over 24-hour period of time and transported home. With discharge, the patient will continue on his current diet. No equipments or supplies necessary. The patient will be discharged with stent. Activity level as directed by myself as well as by Dr. Overton. He will be following back up with Dr. Overton in his office within 2 to 3 weeks, following up back to my associate Dr. Shayna Martinez within 3 to 5 days. The patient will continue on the amlodipine besylate 10 mg p.o. daily, atorvastatin calcium 10 mg daily, bumetanide 2 mg p.o. daily, Carvedilol 12.5 mg p.o. b.i.d., Uloric 40 mg daily, finasteride 5 mg daily, folic acid 1 mg daily, lisinopril 40 mg daily, and meloxicam 15 mg p.o. daily. If the patient develops any bladder discomfort or any blood in his urine, he will be contacting Dr. Overton immediately. If not, the patient will be following back up with me as mentioned as well as continued to follow up with Dr. Overton. Dictated by KIRBY RenaeP MD SEBASTIAN Moreno/VLADIMIR /[id number]
--- NOTE | 2018-11-24 07:06 | Operative Report ---
DATE OF PROCEDURE: 10/14/2018 SURGEON: Boubacar Overton MD PREOPERATIVE DIAGNOSES: 1. Left nephrolithiasis. 2. Urinary tract infection. 3. Microscopic hematuria. POSTOPERATIVE DIAGNOSES: 1. Left nephrolithiasis. 2. Urinary tract infection. 3. Microscopic hematuria. 4. Severe urethral stricture disease from the mid urethra to the bulbar urethra. OPERATION PERFORMED: 1. Cystourethroscopy with direct vision internal urethrotomy made complicated by the length of the stricture (separate procedure performed for the diagnosis of stricture). 2. Cystourethroscopy with bilateral ureteral catheterization and retrograde ureteropyelography (separate procedure performed for the urinary tract infections and microhematuria). 3. Interpretation of retrograde ureteropyelography. 4. Supervision of fluoroscopy, no radiologist present. 5. Left flexible ureteropyeloscopy with holmium laser lithotripsy and insertion of stent (separate procedure performed for the nephrolithiasis). 6. Left radiological services with supervision and interpretation of ureteroscopy. ANESTHESIA: General. COMPLICATIONS: None. CLINICAL SUMMARY: Warren Miller Jr, is a morbidly obese 62-year-old man with large left nephrolithiasis. He is too large to undergo ESWL and is brought to the operating room for ureteroscopy with laser. The patient understands the risks of bleeding, infection, injury to adjacent structures, the multistep nature of this procedure and the fact that he will have to have a followup procedure for additional ureteroscopy as well as stent removal. He understood all these risks and elected to proceed. OPERATIVE PROCEDURE IN DETAIL: Informed consent was verified. Warren Miller Jr was properly identified, taken to the operating room, placed on the cystoscopy table in supine position. Anesthesia was uneventfully begun. The patient was then carefully and gently repositioned in dorsal lithotomy position. All pressure points well padded. His genitalia were prepared and draped in usual sterile fashion. The cystoscope sheath with visual obturator in place was atraumatically inserted into the patient's urethra, was guided down to the level of the mid urethra where there was severe scarring. A guidewire was then placed. Direct vision urethrotome was inserted under direct vision and guided to the region where the cold knife was then utilized to incise the stricture from the mid urethra to the bulbar region at the 12 o'clock position. This resulted in a wide open channel. We cut the scar down to friable non scarred tissue. The cystoscope sheath with the visual obturator in place was then brought easily into the bladder via the now open urethra. We went through the normal sphincteric region and through the prostate bed, which was significant for visually obstructing BPH. We entered the patient's bladder. Panendoscopy revealed heavy trabeculations. No tumors. No suspicious lesions were identified. Ureteral catheter was used to cannulate each ureter and retrograde ureteral pyelograms were performed. Interpretation of retrograde ureteropyelography contrast was instilled in retrograde fashion bilaterally. There were no tumors, no stones. Unobstructed drainage was observed fluoroscopically with findings evident of filling defect corresponding to the stone noted on its prior imaging. Guidewire was left in place. The ureteroscope was then brought up over the guidewire to the level of the patient's kidney. We identified a large stone. Holmium laser lithotripsy was then performed to pulverize the stone in smaller fragments. The ureteroscope was then withdrawn after placement of a guidewire in the cystoscope and fluoroscopic guidance, a left indwelling ureteral stent was then placed, it was coiled in the patient's kidneys as well as the patient's bladder. The retaining suture was cut short. Over the guidewire, a [place] tip Elena catheter was then placed. It was irrigated to and fro to ensure it worked properly. A belladonna and opium suppository were placed revealing a 25 g prostate that is smooth and non-fluctuant without any nodules. The patient is status post circumcision, but has a scarring and phimotic band, which will not be addressed at this surgery. This finding will be followed up. The patient was then uneventfully reversed from anesthesia and taken to recovery room in stable condition. There were no complications of the procedure. He tolerated the procedure well. Estimated blood loss was minimal. Explicit postop instructions were given. We will plan on following patient up in the office in approximately 2 weeks to remove his Elena catheter and then we will schedule him for a followup ureteroscopic procedure with stent removal. Boubacar Overton MD [place]/[facility] /[id number] cc: Migel Martinez MD
== END 2018-10-15 16:10 | disposition home or self-care (01) ==
LOC: OR 06:09 → PACU V 12:48 → INTOOBSV 12:48 → MED/SURG 14:25
PROVIDERS: ADMIT Internal Medicine; ATTEND Internal Medicine
DX: N20.0 Calculus of kidney (principal); I10 Essential (primary) hypertension; I25.10 Atherosclerotic heart disease of native coronary artery without angina pectoris; Z95.1 Presence of aortocoronary bypass graft; M17.11 Unilateral primary osteoarthritis, right knee; N39.0 Urinary tract infection, site not specified; E78.5 Hyperlipidemia, unspecified; N41.9 Inflammatory disease of prostate, unspecified; E66.9 Obesity, unspecified; Z68.42 Body mass index [BMI] 45.0-49.9, adult; R32 Unspecified urinary incontinence
CPT/HCPCS: 36415 ×2; 52276; 52325; 52332; 71046; 74018; 74420; 80048 ×2; 85025 ×2; 93005; C1758; C2617; G0378 ×2; J0696; J1100; J1170; J2001; J2250; J2270 ×2; J2405; J2543 ×2; J2704; J3010; Q9967

== ENCOUNTER → 2019-11-21 | Outpatient (CLI) | payer MEDICARE ==
[~2019-11-21] MED LIST changes: +BUPIVACAINE HCL 0.5% INJ 30 ML VIAL INJ ONE; +LIDOCAINE 1% W/EPINEPHRINE 20 ML VIAL ONE
== END ==
LOC: RAD 11:13
PROVIDERS: ATTEND Urology
DX: N20.0 Calculus of kidney (principal)
CPT/HCPCS: 74018

== ENCOUNTER → 2020-03-08 | Outpatient (CLI) | payer MEDICARE ==
[~2020-03-08] MED LIST changes: -BUPIVACAINE HCL 0.5% INJ 30 ML VIAL INJ ONE; -LIDOCAINE 1% W/EPINEPHRINE 20 ML VIAL ONE
== END ==
LOC: US 11:36
PROVIDERS: ATTEND Internal Medicine
DX: R10.9 Unspecified abdominal pain (principal)
CPT/HCPCS: 76700

== ENCOUNTER → 2020-04-03 | Outpatient (CLI) | payer MEDICARE | LOC: US 12:21 | PROVIDERS: ATTEND Internal Medicine | DX: M10.9 Gout, unspecified (principal); N40.1 Benign prostatic hyperplasia with lower urinary tract symptoms | CPT/HCPCS: 76870; 93976 ==

== ENCOUNTER → 2020-06-28 | Day surgery (SDC) | payer MEDICARE ==
[2020-06-25 13:12] LABS: BASOPHILS % 0.4 % (0.0-1.0); EOSINOPHILS # (AUTO) 0.3 (0.0-0.4); EOSINOPHILS % 2.9 % (0.0-6.0); HEMATOCRIT 39.9 % (38.2-49.6); HEMOGLOBIN 13.2 g/dL (14.0-18.0); LYMPHOCYTES # (AUTO) 1.7 (1.0-3.2); LYMPHOCYTES % 17.9 % (18.0-39.1); MEAN CORPUSCULAR HEMOGLOBIN 28.9 pg (28-32); MEAN CORPUSCULAR HGB CONC 33.1 g/dL (31-35); MEAN CORPUSCULAR VOLUME 87.3 fL (81-99); MONOCYTES # (AUTO) 0.7 (0.2-0.8); MONOCYTES % 7.3 % (4.4-11.3); NEUTROPHILS # (AUTO) 6.6 (2.1-6.9); NEUTROPHILS % 70.9 % (38.7-80.0); PLATELET COUNT 228 x10e3/uL (140-360); RED BLOOD COUNT 4.57 x10e6/uL (4.3-5.7); RED CELL DISTRIBUTION WIDTH 12.8 % (11.7-14.4)
[2020-06-25 13:30] LABS: ANION GAP 13.7 mmol/L (8-16); BLOOD UREA NITROGEN 20 mg/dL (7-26); BUN/CREATININE RATIO 22 (6-25); CALCIUM 9.3 mg/dL (8.4-10.2); CARBON DIOXIDE 25 mmol/L (22-29); CHLORIDE 108 mmol/L (98-107); CREATININE, SERUM 0.91 mg/dL (0.72-1.25); EST GLOMERULAR FILTRATION RATE > 60 ML/MIN (60-); GLUCOSE 121 mg/dL (74-118); POTASSIUM 4.7 mmol/L (3.5-5.1); SODIUM 142 mmol/L (136-145)
[~2020-06-28] MED LIST changes: +CEFAZOLIN SOD 1 GM/NS 50ML 100 ML IV ONE; +DEXAMETHASONE SOD PHOS INJ 4 MG/ML VIAL ONE; +FAMOTIDINE20 MG PO; +FENTANYL CITRATE/PF 100MCG/2 ML INJ ONE; +FLOMAX0.4 MG PO; +LIDOCAINE HCL 2% LOCAL INJ 5 ML SDV VIAL INJ ONE; +MIDAZOLAM HCL 2 MG/2 ML VIAL ONE; +NEOSTIGMINE 1 MG/ML 10ML VIAL ONE; +ONDANSETRON HCL INJ 2MG/ML 2ML 2 MG/ML VIAL ONE; +POTASSIUM CHLO10 ME1 PO; +POVIDONE IODINE 0.05% 0.05 % ML PO ONE; +PROPOFOL IV EMULSION 10 MG/ML 20 ML VIAL ONE; +SEVOFLURANE INHAL SOLN 250 ML PEN BTL ONE; +TRAZODONE HCL50 MG PO
[2020-06-28 14:15] VITALS: BP 120/76
== END | disposition home or self-care (01) ==
LOC: OR 09:17
PROVIDERS: ATTEND Urology
DX: N43.3 Hydrocele, unspecified (principal); N47.5 Adhesions of prepuce and glans penis; N40.1 Benign prostatic hyperplasia with lower urinary tract symptoms; R35.1 Nocturia; N35.919 Unspecified urethral stricture, male, unspecified site; N20.0 Calculus of kidney; N41.1 Chronic prostatitis; N47.1 Phimosis; I10 Essential (primary) hypertension; E78.5 Hyperlipidemia, unspecified; I25.810 Atherosclerosis of coronary artery bypass graft(s) without angina pectoris; E66.9 Obesity, unspecified; K21.9 Gastro-esophageal reflux disease without esophagitis; Z01.810 Encounter for preprocedural cardiovascular examination; Z01.812 Encounter for preprocedural laboratory examination; Z01.818 Encounter for other preprocedural examination; Z79.82 Long term (current) use of aspirin; Z68.42 Body mass index [BMI] 45.0-49.9, adult; Z95.1 Presence of aortocoronary bypass graft
CPT/HCPCS: 36415; 54162; 55060; 71046; 80048; 85025; 88304; 93005; J0690; J1100; J2001; J2250; J2405; J2704; J2710; J3010

== ENCOUNTER 2021-11-12 19:24 | Emergency (ER) | payer MEDICARE, OTHER ==
[~2021-11-12] VITALS: Ht 175.3 cm; Wt 154.7 kg
[~2021-11-12 19:24] MED LIST changes: -CEFAZOLIN SOD 1 GM/NS 50ML 100 ML IV ONE; +COREG12.5 MG PO; -DEXAMETHASONE SOD PHOS INJ 4 MG/ML VIAL ONE; -FENTANYL CITRATE/PF 100MCG/2 ML INJ ONE; +FOLIC ACID0.4 MG PO; -LIDOCAINE HCL 2% LOCAL INJ 5 ML SDV VIAL INJ ONE; +LIPITOR10 MG PO; +MELOXICAM7.5 MG PO; -MIDAZOLAM HCL 2 MG/2 ML VIAL ONE; -NEOSTIGMINE 1 MG/ML 10ML VIAL ONE; -ONDANSETRON HCL INJ 2MG/ML 2ML 2 MG/ML VIAL ONE; +POTASSIUM CHLO20 ME1 PO; -POVIDONE IODINE 0.05% 0.05 % ML PO ONE; -PROPOFOL IV EMULSION 10 MG/ML 20 ML VIAL ONE; -SEVOFLURANE INHAL SOLN 250 ML PEN BTL ONE; +ULORIC80 MG PO; +ZESTRIL10 MG PO
[2021-11-12 22:15] VITALS: BP 140/70
== END 2021-11-12 22:17 | disposition home or self-care (01) ==
LOC: ER 19:30
DX: S00.511A Abrasion of lip, initial encounter (principal); W01.0XXA Fall on same level from slipping, tripping and stumbling without subsequent striking against object, initial encounter; Y93.01 Activity, walking, marching and hiking; Y92.89 Other specified places as the place of occurrence of the external cause; I10 Essential (primary) hypertension; Z95.1 Presence of aortocoronary bypass graft
CPT/HCPCS: 70450; 70486; 72125; 99283

== ENCOUNTER → 2022-03-31 | Outpatient (CLI) | payer MEDICARE | LOC: MRI 03-23 13:56 | PROVIDERS: ATTEND Internal Medicine | DX: R41.3 Other amnesia (principal) ==